=== PATIENT | female | born 1970 | race Caucasian/White ===

== ENCOUNTER 2017-08-13 01:06 | Emergency (ER) | payer OTHER ==
[2017-08-13 01:17] VITALS: BMI 50.1
[2017-08-13] MEDS ORDERED: ACETAMINOPHEN 500 MG TABLET (FP) PO ONE (01:17)
--- NOTE | 2017-08-13 01:52 | PDOC ---
Attending Attestation - HPI HPI: 08/13/17 02:48 The patient is a 46 year old female with no known past medical history presents to the emergency department with a fever and headache. The patient reports for the past 4 days shes been experiencing headaches, without any relieving factors. The patient states she went to [facility] yesterday for right sided paresthesia, a CT of the head was done with negative results. The patient presents to today with a high fever, neck stiffness, sore throat and a rash. Denies taking any medication. Denies any recent head trauma or illness. Denies any recent travel or sick contact. Denies any numbness, tingling, weakness or loss of sensations. Allergies: NKDA Social history: Current everyday smoker, about 6 cigarettes a day. Surgical history: None reported PCP: Dr. Barbra Schaeffer - Medical Decision Making 08/13/17 02:48 Documentation prepared by Belén Shepard, acting as site medical director for Gurjit Caraballo DO. <Belén Shepard - Last Filed: 08/13/17 02:48> - Resident Resident Name: Hector Landeros - ED Attending Attestation I have performed the following: I have examined & evaluated the patient, The case was reviewed & discussed with the resident, I agree w/resident's findings & plan, Exceptions are as noted - Physicial Exam PE: 08/13/17 05:33 Physical Exam General Appearance: Yes: Appropriately Dressed. No: Apparent Distress, Intoxicated HEENT: positive: EOMI, ARABELLA, Normal ENT Inspection, Normal Voice, TMs Normal, Pharynx Normal. negative: Pale Conjunctivae, Photophobia, Scleral Icterus (R), Scleral Icterus (L) Neck: positive: Trachea midline, Normal Thyroid, Supple. negative: Tender, Rigid, Carotid bruit, Stridor, Lymphadenopathy (R), Lymphadenopathy (L), Thyromegaly Respiratory/Chest: positive: Lungs Clear, Normal Breath Sounds. negative: Chest Tender, Respiratory Distress, Accessory Muscle Use, Labored Respiration, RES, Crackles, Rales, Rhonchi, Stridor, Wheezing, Dullness Cardiovascular: positive: Regular Rhythm, Regular Rate, S1, S2. negative: Edema , JVD, Murmur, Bradycardia, Tachycardia Vascular Pulses: Dorsalis-Pedis (R): 2+, Doralis-Pedis (L): 2+ Gastrointestinal/Abdominal: positive: Normal Bowel Sounds, Flat, Soft. negative : Tender, Organomegaly, Pulsatile Mass, Increased Bowel Sounds, Decreased BS, Distended, Guarding, Rebound, Hernia, Hepatomegaly, Spleenomegaly Lymphatic: negative: Adenopathy, Tenderness Musculoskeletal: positive: Normal Inspection. negative: CVA Tenderness, Decreased Range of Motion Extremity: positive: Normal Capillary Refill, Normal Inspection, Normal Range of Motion, Pelvis Stable. negative: Tender, Pedal Edema, Swelling, Erythema Integumentary: positive: Normal Color, Dry, Warm. negative: Cyanotic, Erythema , Jaundice, Rash Neurologic: positive: burn center nurse II-XII NML intact, Fully Oriented, Alert, Normal Mood/ Affect, Motor Strength 5/5. negative: EOM Palsy, Facial Droop, Sensory Deficit <Gurjit Caraballo - Last Filed: 08/13/17 05:34>
[2017-08-13 02:22] LABS: BASO % 0.8 % (0-2.0); EOS % 1.3 % (0-4.5); HEMATOCRIT 39.7 % (32.4-45.2); HEMOGLOBIN 13.3 GM/dL (10.7-15.3); LYMPH % 31.8 % (8-40); MCH 29.4 pg (25.7-33.7); MCHC 33.6 g/dl (32.0-36.0); MEAN CELL VOLUME 87.5 fl (80-96); MONO % 5.6 % (3.8-10.2); NEUT % 60.5 % (42.8-82.8); PLATELET COUNT 183 K/MM3 (134-434); RBC 4.53 M/mm3 (3.60-5.2); RDW 14.2 % (11.6-15.6); WHITE BLOOD COUNT 4.4 K/mm3 (4.0-10.0)
[2017-08-13 02:26] LABS: URINE APPEARANCE CLEAR; URINE BILIRUBIN NEGATIVE (<2.0 mg/dL); URINE COLOR STRAW; URINE GLUCOSE (UA) NEGATIVE (NEGATIVE); URINE KETONE NEGATIVE (NEGATIVE); URINE LEUK ESTERASE NEGATIVE (NEGATIVE); URINE NITRITE NEGATIVE (NEGATIVE); URINE PROTEIN NEGATIVE (NEGATIVE); URINE UROBILINOGEN NEGATIVE mg/dL (0.2-1.0)
[2017-08-13 02:30] LABS: EPI CELLS FEW /HPF (FEW)
[2017-08-13 02:33] LABS: COCAINE, UR NEGATIVE ng/ml (CUTOFF=300); METHADONE, UR NEGATIVE ng/ml (CUTOFF=300); OPIATES, URI NEGATIVE ng/ml (CUTOFF=300); PHENCYCLIDINE,URINE NEGATIVE ng/ml (CUTOFF=25); URINE AMPHETAMINES NEGATIVE ng/ml (CUTOFF=500); URINE BARBITURATES NEGATIVE ng/ml (CUTOFF=200); URINE BENZODIAZEPINES NEGATIVE ng/ml (CUTOFF=200)
[2017-08-13 02:48] LABS: ALBUMIN 3.2 g/dl (3.4-5.0); ANION GAP 5 (8-16); BILIRUBIN,TOTAL 1.1 mg/dL (0.2-1.0); BLOOD UREA NITROGEN 7 mg/dL (7-18); CALCIUM 7.7 mg/dL (8.5-10.1); CHLORIDE 102 mmol/L (98-107); CO2 31 mmol/L (21-32); CREATININE 0.8 mg/dL (0.55-1.02); GLUCOSE,RANDOM 112 mg/dL (74-106); POTASSIUM 3.7 mmol/L (3.5-5.1); SGOT/AST 25 U/L (15-37); SGPT/ALT 24 U/L (12-78); SODIUM 138 mmol/L (136-145); TOT PROT 6.2 g/dl (6.4-8.2)
[2017-08-13 02:49] LABS: ALK PHOS 86 U/L (45-117)
[2017-08-13] MEDS ORDERED: SODIUM CHLORIDE 0.9% 1000 ML INFUS.BAG IV ONE (03:32)
--- NOTE | 2017-08-13 03:51 | PDOC ---
History of Present Illness - General Chief Complaint: SIRS, Suspected/Possible Stated Complaint: FEVER Time Seen by Provider: 08/13/17 01:07 History Source: Patient Exam Limitations: No Limitations - History of Present Illness Initial Comments: 08/13/17 03:41 The patient is a 46F with a PMH of substance abuse who presents to the ER with 4 days of fevers. The patient describes parasthesias that are in her R fingers and toes. She also describes a fever that was subjective until yesterday when she went to [facility] ER and noted a fever of 103. She also describes a headache similar to her migraines except that it is bitemporal in nature. She denies any sick contacts, nausea, vomiting, neck stiffness, abdominal pain. Past History - Past Medical History Allergies/Adverse Reactions: Allergies Allergy/AdvReac Type Severity Reaction Status Date / Time No Known Allergies Allergy Verified 08/13/17 01:14 Home Medications: Ambulatory Orders Ibuprofen [Advil -] 400 mg PO QID 08/13/17 Mirtazapine [Remeron -] 30 mg PO HS 08/13/17 Risperidone [Risperdal] 1 mg PO HS 08/13/17 COPD: No - Suicide/Smoking/Psychosocial Hx Smoking History: Current every day smoker Have you smoked in the past 12 months: Yes Number of Cigarettes Smoked Daily: 6 Information on smoking cessation initiated: No Review of Systems - Review of Systems Able to Perform ROS?: Yes Comments:: 08/13/17 04:23 GENERAL/CONSTITUTIONAL: Positive for fever, chills, and sweats. No weakness. HEAD, EYES, EARS, NOSE AND THROAT: No change in vision. No ear pain or discharge. No sore throat. CARDIOVASCULAR: No chest pain, palpitations, or lightheadedness. RESPIRATORY: No cough, wheezing, shortness of breath, or hemoptysis. GASTROINTESTINAL: No nausea, vomiting, diarrhea, constipation, or abdominal pain. GENITOURINARY: No dysuria, frequency, hematuria, or change in urination. MUSCULOSKELETAL: No joint or muscle swelling or pain. No neck or back pain. SKIN: No rash or lesions. NEUROLOGIC: Positive for headache. No numbness, tingling, weakness, loss of consciousness, or change in strength/sensation. ENDOCRINE: No increased thirst. No abnormal weight change. HEMATOLOGIC/LYMPHATIC: No anemia, easy bleeding, or history of blood clots. ALLERGIC/IMMUNOLOGIC: No hives or skin allergy. Is the patient limited [place] Citizen proficient: No *Physical Exam - Vital Signs Last Vital Signs Temp Pulse Resp BP Pulse Ox 102.8 F H 82 18 135/78 99 08/13/17 01:15 08/13/17 01:15 08/13/17 01:15 08/13/17 01:15 08/13/17 01:15 - Physical Exam Comments: 08/13/17 04:29 GENERAL: Well developed, well nourished. Awake and alert. No acute distress. HEENT: Normocephalic, atraumatic. Hearing grossly normal. Moist mucous membranes. PERRLA, EOMI. No conjunctival pallor. Sclera are non-icteric. Oropharynx is clear. NECK: Supple. Full ROM. Mild cervical lymphadenopathy is present. CARDIOVASCULAR: Regular rate and rhythm. No murmurs, rubs, or gallops. PULMONARY: No evidence of respiratory distress. Lungs clear to auscultation bilaterally. No wheezing, rales or rhonchi. ABDOMINAL: Soft. Non-tender. Non-distended. No rebound or guarding. GENITOURINARY: No CVA tenderness bilaterally. MUSCULOSKELETAL: Normal range of motion at all joints. No bony deformities or tenderness. EXTREMITIES: No cyanosis. No clubbing. No edema. No calf tenderness or swelling. SKIN: Multiple .5 cm excoriated lesions noted on her body: L wrist, posterior neck, sacrum, and b/l medial thighs. Otherwise, warm and dry. Normal capillary refill. No rashes. No jaundice. NEUROLOGICAL: Alert, awake, appropriate. Cranial nerves 2-12 intact. No deficits to light touch and temperature in face, upper extremities and lower extremities. No motor deficits in the in face, upper extremities and lower extremities. Normal speech. Gait is normal without ataxia. PSYCHIATRIC: Cooperative. Good eye contact. Appropriate mood and affect. Procedures - Lumbar Puncture Indication: Fever, Headache CT Scan: Yes Betadine Prep: No (chloraprep used) Position: Sitting Site: L4-L51 Local Anesthesia: 1% Lidocaine with epi Volume(ml): 2 Lumbar Puncture Kit: Adult Traumatic Tap: Yes Tubes Obtained: 4 Clear Fluid: Yes Complications: No ED Treatment Course - LABORATORY CBC & Chemistry Diagram: 08/13/17 02:15 08/13/17 02:15 - ADDITIONAL ORDERS Additional order review: Laboratory Results 08/13/17 08/13/17 08/13/17 02:15 02:15 02:15 Sodium 138 Potassium 3.7 Chloride 102 Carbon Dioxide 31 Anion Gap 5 L BUN 7 Creatinine 0.8 Creat Clearance w eGFR > 60 Random Glucose 112 H Calcium 7.7 L Total Bilirubin 1.1 H AST 25 ALT 24 Alkaline Phosphatase 86 Total Protein 6.2 L Albumin 3.2 L Serum , Qual Negative Urine Color Straw Urine Appearance Clear Urine pH 8.0 Ur Specific [place] 1.002 Urine Protein Negative Urine Glucose (UA) Negative Urine Ketones Negative Urine Blood 2+ H Urine Nitrite Negative Urine Bilirubin Negative Urine Urobilinogen Negative Ur Leukocyte Esterase Negative Urine WBC (Auto) 2 Urine RBC (Auto) 21 Ur Epithelial Cells Few Opiates Screen Methadone Screen Barbiturate Screen Phencyclidine Screen Ur Amphetamines Screen MDMA (Ecstasy) Screen Benzodiazepines Screen Cocaine Screen U Marijuana (THC) Screen 08/13/17 02:15 Sodium Potassium Chloride Carbon Dioxide Anion Gap BUN Creatinine Creat Clearance w eGFR Random Glucose Calcium Total Bilirubin AST ALT Alkaline Phosphatase Total Protein Albumin Serum , Qual Urine Color Urine Appearance Urine pH Ur Specific [place] Urine Protein Urine Glucose (UA) Urine Ketones Urine Blood Urine Nitrite Urine Bilirubin Urine Urobilinogen Ur Leukocyte Esterase Urine WBC (Auto) Urine RBC (Auto) Ur Epithelial Cells Opiates Screen Negative Methadone Screen Negative Barbiturate Screen Negative Phencyclidine Screen Negative Ur Amphetamines Screen Negative MDMA (Ecstasy) Screen Negative Benzodiazepines Screen Negative Cocaine Screen Negative U Marijuana (THC) Screen Negative 08/13/17 02:15 Group A Strep Rapid Antigen - Preliminary Throat 08/13/17 02:15 RBC 4.53 MCV 87.5 MCHC 33.6 RDW 14.2 MPV 7.0 L Neutrophils % 60.5 Lymphocytes % 31.8 Monocytes % 5.6 Eosinophils % 1.3 Basophils % 0.8 - Medications Given in the ED: ED Medications Discontinued Medications Generic Name Dose Route Start Last Admin Trade Name Freq PRN Reason Stop Dose Admin Acetaminophen 1,000 mg 08/13/17 01:17 08/13/17 01:17 Tylenol - PO 08/13/17 01:18 1,000 mg NOW ONE Administration Sodium Chloride 500 ml 08/13/17 03:32 08/13/17 03:40 Normal Saline - IV 05/17/18 03:33 500 ml ONCE ONE Administration Medical Decision Making - Medical Decision Making 08/13/17 04:34 The patient is a 46F with a PMH of EtOH abuse who presents to the ER with complaints of persistent headache and fever. Tylenol given for fever control. CBC shows no white count. However, pt continues to complain of headache and fevers with sweats. Will perform LP after getting consent to r/o meningitis as the patient has a fever, headache, and excoriated lesions across body. 08/13/17 05:43 I have performed a LP in sterile technique. Pt tolerated the procedure well. Will give rocephin IVPB for possible meningitis. Pt is stable. Given reglan, benadryl, and fluids for previous headache. 08/13/17 06:19 CSF shows 1-2 WBC's in tubes 1 and 4. Fever is likely of viral origin. UA, flu, and throat swab negative. Will order CXR and d/c pt home if negative. 08/13/17 06:36 CXR negative on preliminary read. Will discuss results with pt and d/c home. *DC/Admit/Observation/Transfer Diagnosis at time of Disposition: Fever Qualifiers: Fever type: unspecified Qualified Code(s): R50.9 - Fever, unspecified - Discharge Dispostion Disposition: HOME Condition at time of disposition: Stable Decision to Admit order: No - Referrals Referrals: Barbra Pedro MD [Primary Care Provider] - - Patient Instructions Printed Discharge Instructions: DI for Fever (Symptom) -- Adult Additional Instructions: Please follow up with your primary care physician in 2-3 days. Please return to the ER if you have any signs or symptoms of chest pain, shortness of breath, uncontrollable fever, chills, nausea, vomiting, numbness, tingling, or weakness in any part of your body, changes in vision, or slurred speech. Please take your medications as prescribed and as needed. Please return to the ER if symptoms persist, worsen, or new symptoms arise. - Post Discharge Activity
[2017-08-13 04:11] LABS: INR 1.12 (0.82-1.09); PROTHROMBIN TIME (PATIENT) 12.6 SEC (9.7-13.0)
[2017-08-13] MEDS ORDERED: METOCLOPRAMIDE HCL INJECTION 10 MG/2 ML VIAL IVPB ONE (04:22)
[2017-08-13] MEDS ORDERED: diphenhydrAMINE HCL 25 MG CAPSULE (FP) PO ONE (04:22)
[2017-08-13] MEDS ORDERED: METOCLOPRAMIDE HCL INJECTION 10 MG/2 ML VIAL ONE (04:35)
[2017-08-13 04:44] VITALS: BP 134/77; PULSE 70
[2017-08-13 05:28] VITALS: TEMP 98.7
[2017-08-13] MEDS ORDERED: CEFTRIAXONE 1,000 MG in DEXTROSE 5%-WATER - 50 ML IVPB ONE (05:28)
[2017-08-13] MEDS ORDERED: CEFTRIAXONE 1 GM/50 ML BAG ONE ×2 (05:55→05:56)
[2017-08-13 06:04] LABS: GLUCOSE,CSF 69 mg/dL (50-80)
[2017-08-13 06:16] LABS: CSF APPEARANCE CLEAR; CSF COLOR COLORLESS; CSF WBC 1
[2017-08-13 06:17] LABS: CSF APPEARANCE CLEAR; CSF COLOR COLORLESS; CSF WBC 2
[2017-08-13 21:21] LABS: GLUCOSE,CSF 66 mg/dL (50-80)
== END 2017-08-13 06:46 | disposition home or self-care (01) ==
LOC: JER 01:06
PROC: 009U3ZX Drainage of Spinal Canal, Percutaneous Approach, Diagnostic (ICD-10-PCS; principal; 2017-08-13)
PROC: 3E03329 Introduction of Other Anti-infective into Peripheral Vein, Percutaneous Approach (ICD-10-PCS; 2017-08-13)
PROC: 3E033GC Introduction of Other Therapeutic Substance into Peripheral Vein, Percutaneous Approach (ICD-10-PCS; 2017-08-13)
DX: R50.9 Fever, unspecified (principal)
CPT/HCPCS: 36415; 71045-TC-FY; 80053; 80307; 81003; 81015; 82945; 84157; 84703; 85025; 85610; 87040; 87070; 87205; 87430; 87804; 99285-25; J7030